=== PATIENT | male | born 1960 | race Caucasian/White ===

== ENCOUNTER → 2018-04-17 | Outpatient (CLI) | payer OTHER ==
[~2018-04-17] MED LIST: ASPIR-TRIN325 MG PO; CENTRUM SILVER1 EAC2 PO; FISH OIL 1,001000 M2 PO; FLECAINIDE ACET50 M1 PO; NORVASC5 MG PO; PROAIR HFA8.5 GM INH; PROAIR RESPICL90 MCG INH; SORINE 80 MG TA80 M1 PO
== END ==
LOC: CAT 09:34
DX: Z13.6 Encounter for screening for cardiovascular disorders (principal); E78.00 Pure hypercholesterolemia, unspecified; I25.10 Atherosclerotic heart disease of native coronary artery without angina pectoris